=== PATIENT | female | born 1960 | race Caucasian/White ===

== ENCOUNTER 2016-12-05 08:37 | Emergency (ER) | payer SELFPAY ==
[2013-05-09 19:33] VITALS: BMI 40.4
[~2016-12-05 08:37] MED LIST: DEMEROL50 MG PO; PHENERGAN25 M1 PO
== END 2016-12-05 09:12 | disposition home or self-care (01) ==
LOC: D.ER 08:37
DX: J01.90 Acute sinusitis, unspecified (principal); F17.200 Nicotine dependence, unspecified, uncomplicated; I10 Essential (primary) hypertension; G25.81 Restless legs syndrome

== ENCOUNTER → 2018-03-15 08:17 | Outpatient (CLI) | payer MEDICAID ==
[2013-05-09 19:33] VITALS: BMI 40.4
== END | disposition home or self-care (01) ==
LOC: D.NM 08:17
DX: M25.50 Pain in unspecified joint (principal)

== ENCOUNTER → 2018-07-31 17:11 | Outpatient (CLI) | payer MEDICAID ==
[2013-05-09 19:33] VITALS: BMI 40.4
== END | disposition home or self-care (01) ==
LOC: D.MAMMO 15:15
DX: Z12.31 Encounter for screening mammogram for malignant neoplasm of breast (principal)

== ENCOUNTER 2018-11-26 21:48 | Emergency (ER) | payer MEDICAID ==
[~2018-11-26] VITALS: Ht 167.6 cm; Wt 109.1 kg
[2018-11-26 22:19] VITALS: Ht 167.6 cm; Wt 109.1 kg
[2018-11-26] MEDS ORDERED: REQUIP1 MG PO (22:20)
[2018-11-26] MEDS ORDERED: TEMAZEPAM30 MG PO (22:21)
[2018-11-26] MEDS ORDERED: LISINOPRIL-HCT1 EAC4 PO (22:21)
[2018-11-26] MEDS ORDERED: FLUTICASONE PRO16 GM NASAL (23:52)
[2018-11-26] MEDS ORDERED: AUGMENTIN 875-11 TAB PO (23:52)
[2018-11-27 00:07] VITALS: BP 134/81
== END 2018-11-27 00:07 | disposition home or self-care (01) ==
LOC: D.ER 21:48
DX: J01.90 Acute sinusitis, unspecified (principal); R42 Dizziness and giddiness

== ENCOUNTER → 2019-09-25 07:41 | Outpatient (CLI) | payer MEDICAID ==
[2018-11-26 22:19] VITALS: BMI 38.8
[~2019-09-25 07:41] MED LIST changes: +AUGMENTIN 875-11 TAB PO; +FLUTICASONE PRO16 GM NASAL; +LISINOPRIL-HCT1 EAC4 PO; +REQUIP1 MG PO; +TEMAZEPAM30 MG PO
== END | disposition home or self-care (01) ==
LOC: D.NM 07:41
PROVIDERS: ATTEND Family Medicine
DX: M89.8X9 Other specified disorders of bone, unspecified site (principal)

== ENCOUNTER 2021-04-11 22:00 | Emergency (ER) | payer MEDICAID ==
[~2021-04-11] VITALS: Ht 167.6 cm; Wt 113.4 kg
[2021-04-11 22:11] VITALS: BP 155/97; Ht 167.6 cm; Wt 113.4 kg
== END 2021-04-12 00:50 | disposition home or self-care (01) ==
LOC: D.ER 22:00
DX: G89.29 Other chronic pain (principal); M25.562 Pain in left knee